=== PATIENT | female | born 1965 | race Caucasian/White ===

== ENCOUNTER 2019-08-06 18:34 | Inpatient (IN) | payer MEDICAID ==
[~2019-08-06] VITALS: Ht 167.6 cm; Wt 90.7 kg
[2019-08-06] MEDS ORDERED: MORPHINE SULFATE 4 MG/1 ML DISP.SYRIN IV ONE (19:15)
[2019-08-06] MEDS ORDERED: ONDANSETRON 4 MG/2 ML VIAL IV ONE (19:15)
[2019-08-06] MEDS ORDERED: ONDANSETRON 4 MG/2 ML VIAL ONE (19:16)
[2019-08-06] MEDS ORDERED: MORPHINE SULFATE 4 MG/1 ML DISP.SYRIN ONE (19:16)
[2019-08-06 19:17] LABS: BASOPHILS # (AUTO) 0.1 K/uL (0.0-8.0); BASOPHILS % (AUTO) 0.8 % (0.0-2.0); EOSINOPHILS # (AUTO) 0.1 K/uL (0.0-0.7); HEMATOCRIT 35.9 % (31.2-41.9); HEMOGLOBIN 11.8 g/dL (10.9-14.3); LYMPHOCYTES # (AUTO) 0.8 K/uL (20.0-40.0); LYMPHOCYTES % (AUTO) 7.4 % (20.5-51.5); MEAN CORPUSCULAR HEMOGLOBIN 30.3 uug (24.7-32.8); MEAN CORPUSCULAR HGB CONC 33 g/dL (32.3-35.6); MONOCYTES # (AUTO) 0.4 K/uL (2.0-10.0); MONOCYTES % (AUTO) 3.9 % (0.0-11.0); NEUTROPHILS # (AUTO) 8.8 K/uL (1.8-8.9); NEUTROPHILS % (AUTO) 86.9 % (38.5-71.5); PLATELET COUNT (AUTO) 251 K/uL (179-408); WHITE BLOOD COUNT (AUTO) 10.1 K/uL (3.8-11.8)
[2019-08-06 19:21] LABS: CREATININE 0.8 mg/dL (0.6-1.3); POTASSIUM 4.1 mmol/L (3.5-5.1)
[2019-08-06 19:27] LABS: BILIRUBIN,TOTAL 0.1 mg/dL (0.2-1.0); TOTAL PROTEIN, SERUM 7.6 g/dL (6.4-8.2)
[2019-08-06 19:41] LABS: *CLARITY,URINE CLEAR (CLEAR); *COLOR,URINE YELLOW (YELLOW); *KETONES,URINE NEGATIVE (NEGATIVE); *UROBILINOGEN,URINE 0.2 E.U./dl (NORMAL); LEUKOCYTE ESTERASE ,URINE NEGATIVE (NEGATIVE); NITRITE, URINE NEGATIVE (NEGATIVE); PH,URINE 5.5 (5.0-8.0); UGLUCOSE NEGATIVE (NEGATIVE)
[2019-08-06 19:45] LABS: *BILIRUBIN,URIN 1+ (NEGATIVE); *BLOOD, URINE NEGATIVE (NEGATIVE)
[2019-08-06 20:08] LABS: BACTERIA,URINE NONE SEEN /HPF (NONE SEEN); CALCIUM OXALATE CRYSTALS,UR MODERATE /HPF (NONE SEEN); MUCUS,URINE MODERATE /LPF (0-FEW); SQUAMOUS EPITHELIAL CELL,UR MODERATE /HPF (NONE SEEN); URINE AMORPHOUS URATE MANY /HPF
[2019-08-06] MEDS ORDERED: KETAMINE HCL 500 MG/10 ML INJ IV ONE ×2 (20:15→22:45)
[2019-08-06] MEDS ORDERED: LORAZEPAM 2 MG/1 ML VIAL IV ONE (20:15)
[2019-08-06] MEDS ORDERED: IV NS 1000 ML 1,000 ML IV ONE (20:15)
[2019-08-06] MEDS ORDERED: IOHEXOL 350 100 ML INFUS..BTL ONE (20:33)
[2019-08-06] MEDS ORDERED: SWABABLE VALVE TRANSFER SET EA MC ONE (20:33)
[2019-08-06] MEDS ORDERED: IV NORMAL SALINE 250 ML IV ONE (20:34)
[2019-08-06] MEDS ORDERED: MAGNESIUM SULFATE/D5W 200 ML ONE (22:22)
[2019-08-06] MEDS: MAGNESIUM SULFATE/D5W 100 ML IV SCH ×2 (22:26→23:04)
[2019-08-06] MEDS ORDERED: ACETAMINOPHEN 325 MG TABLET PO PRN (23:15)
[2019-08-06] MEDS ORDERED: Z GUARD REMEDY PASTE 57 GM TUBE TOP PRN (23:15)
[2019-08-06] MEDS ORDERED: HYDROCODONE/APAP 5-325MG TABLET PO PRN (23:15)
[2019-08-06] MEDS ORDERED: MAGNESIUM HYDROXIDE 30 ML LIQUID UDC PO PRN (23:15)
[2019-08-06] MEDS ORDERED: ONDANSETRON 4 MG/2 ML VIAL IV PRN (23:15)
[2019-08-06] MEDS ORDERED: MORPHINE SULFATE 2 MG/1 ML DISP.SYRIN IV PRN (23:15)
[2019-08-06] MEDS: METHOCARBAMOL 500 MG TABLET PO SCH ×2 (23:36→23:52)
[2019-08-06] MEDS ORDERED: KETOROLAC TROMETHAMINE 30 MG INJ IM PRN (23:45)
[2019-08-07] VITALS: BP 127/66
[2019-08-07] MEDS: IV D5 1/2 NS 1000 ML 1,000 ML IV PRN ×2 (00:24→06:18)
[2019-08-07 05:15] VITALS: BP 119/61
[2019-08-07] MEDS: METHOCARBAMOL 500 MG TABLET PO SCH ×2 (06:16→12:15)
[2019-08-07 06:57] LABS: BASOPHILS # (AUTO) 0.1 K/uL (0.0-8.0); BASOPHILS % (AUTO) 0.5 % (0.0-2.0); EOSINOPHILS # (AUTO) 0.2 K/uL (0.0-0.7); EOSINOPHILS % (AUTO) 1.4 % (0.0-7.0); HEMATOCRIT 32.6 % (31.2-41.9); HEMOGLOBIN 10.7 g/dL (10.9-14.3); LYMPHOCYTES # (AUTO) 1.4 K/uL (20.0-40.0); LYMPHOCYTES % (AUTO) 12.4 % (20.5-51.5); MEAN CORPUSCULAR HEMOGLOBIN 30.3 uug (24.7-32.8); MEAN CORPUSCULAR HGB CONC 33 g/dL (32.3-35.6); MEAN CORPUSCULAR VOLUME 92.4 fL (75.5-95.3); MONOCYTES # (AUTO) 0.5 K/uL (2.0-10.0); NEUTROPHILS # (AUTO) 9.4 K/uL (1.8-8.9); NEUTROPHILS % (AUTO) 81.7 % (38.5-71.5); PLATELET COUNT (AUTO) 245 K/uL (179-408); RED BLOOD CELL COUNT(AUTO) 3.53 MIL/uL (3.63-4.92); WHITE BLOOD COUNT (AUTO) 11.5 K/uL (3.8-11.8)
[2019-08-07 07:09] LABS: CREATININE 0.8 mg/dL (0.6-1.3); MAGNESIUM 2.5 mg/dL (1.8-2.4); PHOSPHOROUS 3.2 mg/dL (2.5-4.9); POTASSIUM 4.7 mmol/L (3.5-5.1)
[2019-08-07 07:15] LABS: THYROID STIMULATING HORMONE 3.18 mIU/mL (0.358-3.740)
[2019-08-07] MEDS ORDERED: MORPHINE SULFATE 4 MG/1 ML DISP.SYRIN IV PRN (07:15)
[2019-08-07] MEDS ORDERED: BENA20TA9 PO (11:13)
[2019-08-07] MEDS ORDERED: SERT25TA PO (11:22)
[2019-08-07] MEDS ORDERED: LEVO75TA7 PO (11:22)
[2019-08-07] MEDS ORDERED: LORA-258 PO (11:22)
[2019-08-07] MEDS ORDERED: HYDR25TA4 PO (11:22)
[2019-08-07] MEDS ORDERED: METH500T6 PO (11:45)
[2019-08-07 11:52] VITALS: BP 139/78
[2019-08-07 15:54] VITALS: BP 146/76
== END 2019-08-07 17:25 | disposition home or self-care (01) | DRG 254 ==
LOC: ER 18:34 → MEDSURG3 23:06
PROVIDERS: ADMIT Student in an Organized Health Care Education/Training Program; ATTEND Student in an Organized Health Care Education/Training Program
DX: K46.9 Unspecified abdominal hernia without obstruction or gangrene (principal); J84.10 Pulmonary fibrosis, unspecified; K76.0 Fatty (change of) liver, not elsewhere classified; M62.838 Other muscle spasm; N28.1 Cyst of kidney, acquired; E03.9 Hypothyroidism, unspecified; M19.90 Unspecified osteoarthritis, unspecified site; M48.061 Spinal stenosis, lumbar region without neurogenic claudication; M51.36 Other intervertebral disc degeneration, lumbar region; K57.90 Diverticulosis of intestine, part unspecified, without perforation or abscess without bleeding; K43.2 Incisional hernia without obstruction or gangrene; Z82.49 Family history of ischemic heart disease and other diseases of the circulatory system; I10 Essential (primary) hypertension
CPT/HCPCS: 36415; 71275; 72131; 83690; 83735; 84100; 84443; 85025; 87086; 93005; A4663; G0378; J1885; J2060; J2270; J2405; J3475; J3490; J7030; J7050; Q9967